=== PATIENT | female | born 1955 | race Hispanic/Latino ===

== ENCOUNTER 2016-11-08 11:50 | Outpatient (CLI) | payer BC ==
--- NOTE | 2016-11-11 18:51 | Magnetic Resonance Report ---
MR scan of the cranium was performed without contrast. Pulse sequences included: 1. T1 weighted sagittal and axial images without contrast 2. T2 weighted axial and coronal images 3. FLAIR axial images 4. Diffusion-weighted axial images 5. Apparent diffusion coefficient images 6. Axial gradient echo images Views of the posterior fossa showed a normal craniocervical junction. Cerebellar pontine angles were normal with normal seventh-eighth nerve complexes. Brainstem and cerebellum were normal. The ventricular system showed no dilatation or distortion. Images of the hemispheres showed rare punctate areas of increased signal consistent with araiosis. Sinuses, flow voids in the [place], orbits, pituitary and basal ganglia were normal. Impression: Normal MR scan of the cranium without contrast.
== END 2016-11-08 11:51 | disposition home or self-care (01) ==
LOC: SPVIMAG 11:50
PROVIDERS: ATTEND Specialist
DX: R41.1 Anterograde amnesia (principal)
CPT/HCPCS: 70551